=== PATIENT | male | born 1955 | race Caucasian/White ===

== ENCOUNTER 2018-03-10 20:30 | Outpatient (CLI) | payer OTHER | END 2018-03-10 20:31 | disposition home or self-care (01) | LOC: SLEEPLAB 20:30 | PROVIDERS: ATTEND Internal Medicine Critical Care Medicine | DX: G47.33 Obstructive sleep apnea (adult) (pediatric) (principal); E66.9 Obesity, unspecified; R53.83 Other fatigue; Z68.38 Body mass index [BMI] 38.0-38.9, adult | CPT/HCPCS: 95810 ==

== ENCOUNTER 2018-04-02 20:52 | Emergency (ER) | payer OTHER ==
[2018-04-02] MEDS ORDERED: Ketorolac Tromethamine 30 MG/ML VIAL ONE (21:53)
--- NOTE | 2018-04-03 07:39 | RAD ---
CHEST TWO VIEWS: 04/02/18 HISTORY: Fall. Pain. COMPARISON: 01/20/18. FINDINGS: Normal cardiac silhouette. Pulmonary vessels and hilum are normal. costophrenic angles are clear. Chr onic changes without consolidation or mass. No pneumothorax or osseous abnormalities. IMPRESSION: No acute cardiopulmonary process. POS: [facility]
== END 2018-04-02 22:12 | disposition home or self-care (01) ==
LOC: ERS 20:52
DX: S30.1XXA Contusion of abdominal wall, initial encounter (principal); E11.9 Type 2 diabetes mellitus without complications; E78.5 Hyperlipidemia, unspecified; W19.XXXA Unspecified fall, initial encounter
CPT/HCPCS: 71046; 96372; J1885

== ENCOUNTER 2019-08-27 13:16 | Emergency (ER) | payer OTHER ==
[~2019-08-27 13:16] MED LIST: Iopamidol 370 76% 100 ML VIAL ONE
[2019-08-27 14:18] LABS: #Eosinphils 0.2 thou/uL (0.0-0.7); #Lymphocytes 0.9 thou/uL (1.20-3.40); #Monocytes 0.6 thou/uL (0.11-0.59); #Neutrophils 7.2 thou/uL (1.40-6.50); %Basophils 0.3 % (0.0-1.0); %Eosinophils 2.6 % (0.0-10.0); %Lymphocytes 9.7 % (21.0-51.0); %Monocytes 6.5 % (0.0-10.0); %Neutrophils 80.9 % (42.0-75.0); Hemoglobin 11.7 g/dL (14.0-18.0); Mean Corpuscular HGB CONC 34.2 g/dL (32.0-36.0); Mean Corpuscular Hemoglobin 32.3 pg (27.0-31.0); Mean Corpuscular Volume 94.2 fL (78.0-98.0); Mean Platelet Volume 5.5 fL (7.4-10.4); Platelet Count 227 thou/uL (130-400); RBC Distribution Width 12.3 % (11.5-14.5); Red Blood Cell (RBC) Count 3.63 mill/uL (4.70-6.10); White Blood Cell (WBC) Count 8.9 thou/uL (4.8-10.8)
[2019-08-27 14:34] LABS: ALT (SGPT) 25 U/L (8-55); AST (SGOT) 43 U/L (5-34); Albumin 3.3 g/dL (3.4-4.8); Alkaline Phosphatase 94 U/L (40-110); Anion Gap 17 mmol/L (10-20); BUN (Urea Nitrogen) 10 mg/dL (8.4-25.7); Bilirubin, Total 0.3 mg/dL (0.2-1.2); Calc. Creatinine Clearance 0 mL/min (70-130); Calcium 7.4 mg/dL (7.8-10.44); Carbon Dioxide 17 mmol/L (23-31); Chloride 101 mmol/L (98-107); Estimated GFR-MDRD Greater than 90; Globulin 2.6 g/dL (2.4-3.5); Glucose 225 mg/dL (80-115); Lipase 16 U/L (8-78); Potassium 4.2 mmol/L (3.5-5.1); Protein, Total 5.9 g/dL (5.8-8.1); Sodium 131 mmol/L (136-145)
--- NOTE | 2019-08-27 15:29 | CT ---
ABDOMEN CT WITH CONTRAST PELVIC CT WITH CONTRAST: HISTORY: Biopsy yesterday at outside institution. Patient is having some pain. COMPARISON: 03/07/2016. FINDINGS: ABDOMEN CT: Small bilateral effusions with adjacent lung parenchymal changes likely representing atelectasis or s car. Heart size is within normal limits. No significant pericardial fluid. The descending thoracic aorta and upper abdominal aorta have a normal caliber. No periaortic fat stranding. Gallbladder is surgically absent. There do appear to be stones in the cystic duct. Common bile duct is unremarkable. The ill-defined mass in the head of the pancreas, measuring 3.8 x 3.2 cm. The bod y and the tail of the pancreas have appropriate attenuation. Spleen and adrenal glands have appropri ate attenuation. There is ill-defined hypoattenuation involving the right hepatic lobe. There is re traction of the hepatic capsule in the right lobe of the liver. Symmetric enhancement of the kidneys. Bilaterally, no obstructive uropathy. Subcentimeter hypodensi ty in the right renal cortex is too small to characterize. No retrocrural or periportal lymphadenopathy. There is an enlarged gastrohepatic lymph node, measuri ng 1.1 x 1.1 cm. An additional smaller gastrohepatic lymph node measures 1.3 x 0.7 cm. There is no evidence of free fluid. No obvious mass. However, there do appear to be enlarged mesent siva lymph nodes. 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 Additional l eft abdominal mesenteric lymph nodes are noted. Additional enlarged lymph node measures 1.3 x 1.6 cm . Small foci of intraperitoneal air is noted in the right upper quadrant and anterior abdominal mese ntery, presumed to be iatrogenic. Limited evaluation of the alimentary canal with the absence of oral contrast. No evidence of bowel o bstruction. Multiple normal-caliber small bowel loops are identified. There is nonspecific mild muc osal thickening of the proximal and mid small bowel loops. Ileocecal junction is normal. Normal-alexandrea iber appendix. Scattered fecal material in a nondistended, nondilated colon. Anterior abdominal wall hernia containing mesenteric fat. No bowel herniation. PELVIC CT: No mass, lymphadenopathy, free air, or free fluid. IMPRESSION: 1. Small foci of intraperitoneal air compatible with recent biopsy. No evidence of post biopsy perez ge in the pancreas or liver. 2. Heterogeneous attenuation involving the right hepatic lobe with retraction of the hepatic capsule may represent a focus of malignancy (axial images 23 through 25). 3. Abnormal attenuation involving the head of the pancreas, worrisome for malignancy. There are enl arged mesenteric and gastroesophageal lymph nodes, suggesting metastases. POS: [facility]
[2019-08-27] MEDS ORDERED: HYDROcodone/Acetaminophen 5/325 mg Tablet ONE (16:48)
== END 2019-08-27 16:52 | disposition home or self-care (01) ==
LOC: ERS 13:16
DX: R14.0 Abdominal distension (gaseous) (principal); R10.817 Generalized abdominal tenderness; E11.9 Type 2 diabetes mellitus without complications; K21.9 Gastro-esophageal reflux disease without esophagitis; I10 Essential (primary) hypertension; M19.90 Unspecified osteoarthritis, unspecified site; E78.5 Hyperlipidemia, unspecified; E78.00 Pure hypercholesterolemia, unspecified; Z79.899 Other long term (current) drug therapy; Z79.84 Long term (current) use of oral hypoglycemic drugs
CPT/HCPCS: 74177; 80053; 83690; 85025; 96360; 96361; Q9967